=== PATIENT | female | born 1945 | race African-American/Black ===

== ENCOUNTER → 2017-11-29 | Outpatient (CLI) | payer MEDICARE, OTHER | END | disposition home or self-care (01) | LOC: RAD 08:42 | DX: J44.9 Chronic obstructive pulmonary disease, unspecified (principal); I10 Essential (primary) hypertension; E11.9 Type 2 diabetes mellitus without complications | CPT/HCPCS: 71046 ==

== ENCOUNTER → 2017-11-30 | Outpatient (CLI) | payer MEDICARE, OTHER ==
[~2017-11-30] MED LIST: CONTRAST GIVEN. MC
[2017-11-30] MEDS: IOHEXOL 300 MG/ML 100ML VIAL. IV (09:56)
== END | disposition home or self-care (01) ==
LOC: CT 08:47
DX: I31.3 Pericardial effusion (noninflammatory) (principal); M47.895 Other spondylosis, thoracolumbar region; D17.79 Benign lipomatous neoplasm of other sites; I70.0 Atherosclerosis of aorta; I10 Essential (primary) hypertension; E11.9 Type 2 diabetes mellitus without complications; J44.9 Chronic obstructive pulmonary disease, unspecified
CPT/HCPCS: 71260; Q9967

== ENCOUNTER → 2018-01-23 | Outpatient (CLI) | payer MEDICARE, OTHER ==
[2017-12-15 11:00] VITALS: BP 99/45
[~2018-01-23] MED LIST changes: +ACET500T33 PO; +ASPI-482 PO; +ASPI-630 PO; +ASPI81TA50 PO; +AZIT250T PO; +BENZ0.5T32 PO; +CANA100T PO; -CONTRAST GIVEN. MC; +CONTRAST GIVEN. MC PRN; +ETOPOSIDE IV; +FLUT1BLS3 IH; +FLUT9.9S NS; +IOHEXOL 240 MG/ML 50ML VIAL. PO ONE; +IOHEXOL 300 MG/ML 100ML VIAL. IV ONE; +IPRA3AMP29 NEB; +LOSA1TAB19 PO; +METF500T16 PO; +METF500T9 PO; +MULT1TAB52 PO; +REPA2TAB PO; +SAXA5TAB PO; +SIMV20TA3 PO; +SITA50TA PO; +TRAM50TA PO; +Tylenol Arthritis PO; +VENTOLIN HFA18 GM INH; +VITA400C37 PO; +carboplatin IV
--- NOTE | 2018-01-23 12:15 | RAD ---
CT CHEST ABD PELVIS W/CONTRAST Indication: SMALL CELL LUNG CA INJ 60ML OMNI 300 PREV CHEST SENT Exposure: One or more of the following individualized dose reduction techniques were utilized for this examination: 1. Automated exposure control 2. Adjustment of the mA and/or kV according to patient size 3. Use of iterative reconstruction technique. Comparison: CT chest November 30, 2017. No prior CT abdomen and pelvis. Contrast: Intravenous contrast was given. Oral contrast was given. CHEST: The right anterior mediastinal mass has decreased in size since previous exam, now measuring 4.1 cm wide compared with 8.0 on prior. 3.4 cm AP compared with 5.5 on similar prior slice. 3.4 cm height compared with 4.5 on similar prior slice. Mass posterior to this and anterior to the great vessels has decreased in size as well, now measuring 3.5 x 2.0 on transverse dimensions, compared with 5.3 x 4.2 on similar prior slice. Pretracheal lymph node measures 8 mm diameter as compared with 18 mm on prior. Left hilar mass has decreased in size. There is some new consolidative opacity adjacent to the left hilar mass and extending superiorly along the left superior mediastinum with air bronchograms. This could represent some postobstructive consolidation or neoplastic tissue. There is attenuation of the left upper lobe bronchi within this opacity. Development of a small ill-defined nodule in the superior segment of the right lower lobe, series 2, image 25, measures 7 mm. Coronary artery calcifications. The thoracic aorta is calcified and ectatic. No evidence of aneurysm or dissection. Narrowing of the left brachiocephalic vein the mass effect has decreased in conjunction with decreased size of the mediastinal masses. There is still persistent mass effect and narrowing upon the superior vena cava.. Small left thyroid nodule, not included in the area of coverage of the prior study, measures 7 mm. Mild pericardial thickening or fluid. There has been right mastectomy. Right chest wall port is in place. Degenerative spondylosis. Impression: 1. Decrease in size of mediastinal and hilar masses. No definite mass effect and narrowing upon the superior vena cava and left brachiocephalic vein persist although has improved. 2. Development of an area of consolidative opacity in the left upper lobe, could be postobstructive lung consolidation or new neoplastic tissue. 3. Development of a small nodule in the right lower lobe, 7 mm, concerning for metastatic disease. ABDOMEN PELVIS: Liver: Unremarkable Spleen: Multiple lesions within the spleen, some of which demonstrate coarse calcification, similar to prior exam. Pancreas: Unremarkable Adrenals: Fatty mass within left adrenal compatible with a myelolipoma is again identified and appears similar. Kidneys: No obvious mass. Urinary tracts: No hydronephrosis. Gallbladder: No calcified stone Lymph nodes: No significant enlargement Vessels: * Aorta: Calcified, no aneurysm * Major aortic branches: Calcified but grossly patent. * Portal venous: Patent GI tract: Mild diverticulosis. No acute colitis. No evidence of bowel obstruction. Appendix is normal. Reproductive organs:No evidence of mass. Urinary bladder: Not adequately distended for evaluation. Peritoneum: No evidence of pneumoperitoneum. No free fluid. Abdominal wall:Unremarkable Spine: Degenerative spondylosis with stenosis. Bones: No destructive lesion. IMPRESSION: 1. Multiple hypodense and calcified splenic lesions are again identified, nonspecific but could be metastatic disease. 2. Small left adrenal myelolipoma is again identified. 3. Lumbar spondylosis. Electronically signed by: Estiven Hughes MD (01/23/2018 12:12 PM) [facility]
== END | disposition home or self-care (01) ==
LOC: CT 08:57
PROVIDERS: ATTEND Internal Medicine Hematology & Oncology
DX: C34.90 Malignant neoplasm of unspecified part of unspecified bronchus or lung (principal); D17.79 Benign lipomatous neoplasm of other sites; M47.896 Other spondylosis, lumbar region; M48.061 Spinal stenosis, lumbar region without neurogenic claudication; K57.90 Diverticulosis of intestine, part unspecified, without perforation or abscess without bleeding; E04.1 Nontoxic single thyroid nodule; R91.1 Solitary pulmonary nodule; I77.810 Thoracic aortic ectasia; J44.9 Chronic obstructive pulmonary disease, unspecified; I10 Essential (primary) hypertension; E11.9 Type 2 diabetes mellitus without complications; E78.5 Hyperlipidemia, unspecified; Z90.11 Acquired absence of right breast and nipple; Z79.4 Long term (current) use of insulin; Z82.49 Family history of ischemic heart disease and other diseases of the circulatory system; Z80.0 Family history of malignant neoplasm of digestive organs; Z80.3 Family history of malignant neoplasm of breast; Z83.3 Family history of diabetes mellitus
CPT/HCPCS: 71260; 74177; Q9966; Q9967

== ENCOUNTER 2018-02-04 08:59 | Outpatient (CLI) | payer MEDICARE, OTHER ==
[~2018-02-04] VITALS: Ht 160 cm; Wt 74.4 kg
[~2018-02-04 08:59] MED LIST changes: -CONTRAST GIVEN. MC PRN; -IOHEXOL 240 MG/ML 50ML VIAL. PO ONE; -IOHEXOL 300 MG/ML 100ML VIAL. IV ONE
[2018-02-04 09:31] VITALS: BP 132/87
[2018-02-04 09:45] LABS: BASO % 1 % (0-3); EOS % 0 % (0-3); HEMATOCRIT 31.7 % (36.0-47.0); HEMOGLOBIN 10.7 g/dL (12.0-15.5); LYMPH # 2.1 x10^3/uL (1.0-4.8); LYMPH % 38 % (24-48); MEAN CORPUSCULAR HEMOGLOBIN 32 pg (25-35); MEAN CORPUSCULAR HGB CONC 34 g/dL (31-37); MEAN CORPUSCULAR VOLUME 96 fL (79-100); MONO # 0.8 x10^3/uL (0.0-1.1); MONO % 16 % (0-9); NEUT # 2.5 x10^3uL (1.8-7.7); NEUT % 46 % (31-73); PLATELET COUNT 265 x10^3/uL (140-400); RED BLOOD COUNT 3.32 x10^6/uL (3.50-5.40); RED CELL DISTRIBUTION WIDTH 18.1 % (11.5-14.5); WHITE BLOOD COUNT 5.5 x10^3/uL (4.0-11.0)
[2018-02-04 11:24] LABS: PROTHROMBIN TIME PATIENT 13.3 SEC (11.7-14.0)
[2018-02-04] MEDS ORDERED: LIDOCAINE 1%/EPI 1:100,000 20 ML VIAL. ONE (11:50)
[2018-02-04] MEDS ORDERED: fentaNYL PF VIAL 100 MCG/2 ML VIAL ONE (12:21)
[2018-02-04] MEDS ORDERED: LIDOCAINE 1%/EPI 1:100,000 20 ML VIAL. IJ ONE (12:45)
[2018-02-04] MEDS ORDERED: fentaNYL PF VIAL 100 MCG/2 ML VIAL IV ONE (12:45)
[2018-02-04 13:15] VITALS: BP 144/71
[2018-02-04 13:30] VITALS: BP 135/65
--- NOTE | 2018-02-04 14:13 | RAD ---
Fluoroscopic guided implanted port catheter removal History: Catheter no longer needed. Intravenous treatment no longer planned Exposure: Kerma area product: 1 Gycm2 Procedure: Written informed consent was obtained. The indwelling device was fluoroscopically evaluated. A spot film was obtained. The area was draped and prepped in normal sterile fashion. Local anesthesia with 1% Lidocaine was made. Blunt dissection was used to mobilize the catheter and port reservoir from the fibrin sheath. The catheter and port was then withdrawn. Hemostasis was obtained of the venotomy site using nonocclusive manual compression. A spot film was obtained to document good catheter removal. The patient tolerated tolerated the procedure with local anesthesia and IV pain medication. Impression: Successful removal of implanted port catheter
== END 2018-02-04 13:45 | disposition home or self-care (01) ==
LOC: INTRAD 08:59
PROVIDERS: ATTEND Internal Medicine Hematology & Oncology
DX: Z45.2 Encounter for adjustment and management of vascular access device (principal); C34.90 Malignant neoplasm of unspecified part of unspecified bronchus or lung; Z88.5 Allergy status to narcotic agent; Z88.6 Allergy status to analgesic agent; Z88.8 Allergy status to other drugs, medicaments and biological substances; Z79.899 Other long term (current) drug therapy; Z79.01 Long term (current) use of anticoagulants
CPT/HCPCS: 36415; 36590; 77001; 85025; 85610; 85730; J3010; J3490

== ENCOUNTER 2018-03-15 10:02 | Emergency (ER) | payer MEDICARE, OTHER ==
[~2018-03-15] VITALS: Ht 160 cm; Wt 77.1 kg
[2018-03-15 10:59] VITALS: BP 144/81
[2018-03-15] MEDS ORDERED: predniSONE 10 MG TABLET PO ONE (11:30)
--- NOTE | 2018-03-15 12:13 | PHYS DOC ---
Past Medical History Past Medical History: COPD, Diabetes-Type II, High Cholesterol, Hypertension Past Surgical History: Hysterectomy, Other Additional Past Surgical Histo: RIGHT MASTECTOMY Adult General Chief Complaint Chief Complaint: FACE PROBLEM HPI HPI Patient is a 72 year old female who presents with complaints of facial swelling. The patient states that she has been short of breath and saw Dr. Mahan yesterday. She is supposed to use a she steroid inhaler for her COPD. She states that she cannot use the inhaler because she is having difficulties with the mechanism of inhaling it. The patient's daughter is requesting that she get placed on oral steroids. The patient states that Dr. Mahan refused to place her on oral steroids due to complications. They stated that she had been misdiagnosed with cancer and had actually had a port that was removed after several rounds of chemotherapy. She denies fever, chest pain or pedal edema. Review of Systems Review of Systems Constitutional: Denies fever or chills [] Eyes: Denies change in visual acuity, redness, or eye pain [] HENT: See history of present illness Respiratory: See history of present illness Cardiovascular: No additional information not addressed in HPI [] GI: Denies abdominal pain, nausea, vomiting, bloody stools or diarrhea [] : Denies dysuria or hematuria [] Musculoskeletal: Denies back pain or joint pain [] Integument: Denies rash or skin lesions [] Neurologic: Denies headache, focal weakness or sensory changes [] Endocrine: Denies polyuria or polydipsia [] All other systems were reviewed and found to be within normal limits, except as documented in this note. Current Medications Current Medications Current Medications Medications (Trade) Dose Ordered Sig/[facility] Start Time Stop Time Status Last Admin Dose Admin Prednisone (Prednisone) 50 mg 1X ONCE 03/15/18 11:30 03/15/18 11:31 DC 03/15/18 11:51 50 MG Allergies Allergies Allergies Coded Allergies Type Severity Reaction Last Updated Verified codeine Allergy Intermediate tolerates Lortab 05/21/15 Yes lisinopril Allergy Intermediate cough 12/08/17 Yes Physical Exam Physical Exam Constitutional: Well developed, well nourished, no acute distress, non-toxic appearance. [] HENT: Normocephalic, atraumatic, bilateral external ears normal, oropharynx moist, no oral exudates, nose normal, no appreciable edema to her face. [] Eyes: PERRLA, EOMI, conjunctiva normal, no discharge. [] Neck: Normal range of motion, no tenderness, supple, no stridor. [] Cardiovascular:Heart rate regular rhythm, no murmur [] Lungs & Thorax: Bilateral breath sounds decreased throughout Abdomen: Bowel sounds normal, soft, no tenderness, no masses, no pulsatile masses. [] Skin: Warm, dry, no erythema, no rash. [] Neurologic: Alert and oriented X 3, normal motor function, normal sensory function, no focal deficits noted. [] Psychologic: Affect normal, judgement normal, mood normal. [] Current Patient Data Vital Signs Vital Signs Date Time Temp Pulse Resp B/P (MAP) Pulse Ox O2 Delivery O2 Flow Rate FiO2 03/15/18 10:59 98.3 96 20 144/81 (102) 98 Room Air 98.3 EKG EKG [] Radiology/Procedures Radiology/Procedures [] Course & Med Decision Making Course & Med Decision Making Pertinent Labs and Imaging studies reviewed. (See chart for details) []Upon further questioning the patient is unaware of how to use her steroid inhaler. I asked her to show me how she was using it and she was not turning the dial over enough to advance to the next dose. The patient also misunderstood thinking that they were supposed to be a liquid filling her mouth when she inhaled. I explained that she was actually inhaling the powder directly into her lungs and should not be feeling anything in her mouth. It seems that most of her complaints were dressed by education on her medication. She was given 1 dose of oral steroids in the emergency department per her daughter's request. I declined to write a prescription for oral steroids due to the fact that they had freely admitted her primary care provider did not want her taking oral steroids. They are to follow-up with her PCP for further instruction. Dragon Disclaimer Dragon Disclaimer This electronic medical record was generated, in whole or in part, using a voice recognition dictation system. Departure Departure Impression: Primary Impression: Facial swelling Disposition: 01 HOME, SELF-CARE Condition: STABLE Referrals: SARA MAHAN (PCP) Patient Instructions: Prednisone tablets Additional Instructions: Take your at-home medications as prescribed. Follow-up with your primary care provider for further education on using your pulmonary inhalers. If worsening return to the emergency department. FRANSISCO HOWE APRN Mar 15, 2018 12:13
[2018-03-19] MEDS ORDERED: METH4TAB PO (10:28)
== END 2018-03-15 12:35 | disposition home or self-care (01) ==
LOC: ER 10:02
DX: R22.0 Localized swelling, mass and lump, head (principal); J44.9 Chronic obstructive pulmonary disease, unspecified; E78.00 Pure hypercholesterolemia, unspecified; E11.9 Type 2 diabetes mellitus without complications; I10 Essential (primary) hypertension; Z88.5 Allergy status to narcotic agent; Z88.8 Allergy status to other drugs, medicaments and biological substances
CPT/HCPCS: 99282; J7512

== ENCOUNTER 2018-05-06 17:57 | Inpatient (IN) | payer MEDICARE, MEDICAID ==
[~2018-05-06] VITALS: Ht 160 cm; Wt 53.5 kg
[~2018-05-06 17:57] MED LIST changes: +GABA-585 PO; +METH4TAB PO
--- NOTE | 2018-05-06 18:21 | PHYS DOC ---
Past Medical History Past Medical History: Cancer, COPD, Diabetes-Type II, High Cholesterol, Hypertension Past Surgical History: Hysterectomy, Other Additional Past Surgical Histo: RIGHT MASTECTOMY,PAC PLACEMENT & REMOVAL Alcohol Use: None Drug Use: None Adult General Chief Complaint Chief Complaint: UPPER EXTREMITY PAIN [facility] HPI Patient is a 73 year old female who presents with extremity injury. Patient complains of pain in the right forearm. The patient did recently undergo 15 rounds of radiation therapy to the left chest where she was diagnosed with a small cell lung cancer. Her most recent radiation was 5 days ago. She describes that she did have this similar arm pain and neuropathy associated with her radiation throughout the duration of her treatments. Today, she is concerned that the pain hurts worse compared to prior as well as the fact that she is no longer undergoing radiation and did complete that therapy. She does not report a fever but is noted to have a temperature 100.8 on arrival to her room. No chest pain or shortness of breath. No cough. No airway congestion. No headaches or neck stiffness. No change in mental status. Review of Systems Review of Systems Constitutional: Denies fever Eyes: Denies change in visual acuity HENT: Denies nasal congestion Respiratory: Denies cough or shortness of breath Cardiovascular: No additional information not addressed in HPI GI: Denies abdominal pain, nausea, vomiting : Denies dysuria Musculoskeletal: Denies back pain Integument: Denies rash or skin lesions Neurologic: Denies headache, or focal neurologic complaints Endocrine: Denies polyuria All other systems were reviewed and found to be within normal limits, except as documented in this note. Current Medications Current Medications Current Medications Medications (Trade) Dose Ordered Sig/[facility]ie Start Time Stop Time Status Last Admin Dose Admin Acetaminophen (Tylenol) 1,000 mg 1X ONCE 05/06/18 19:00 05/06/18 19:01 DC 05/06/18 19:05 1,000 MG Azithromycin 250 ml @ 250 mls/hr 1X ONCE 05/06/18 20:30 05/06/18 21:29 Ceftriaxone Sodium (Rocephin) 1 gm 1X ONCE 05/06/18 20:30 05/06/18 20:31 DC Sodium Chloride 500 ml @ 500 mls/hr 1X ONCE 05/06/18 20:45 05/06/18 21:44 Allergies Allergies Allergies Coded Allergies Type Severity Reaction Last Updated Verified codeine Allergy Intermediate tolerates Lortab 05/06/18 Yes lisinopril Allergy Intermediate cough 05/06/18 Yes Physical Exam Physical Exam Constitutional: Well developed, well nourished, no acute distress, non-toxic appearance HENT: Normocephalic, atraumatic, bilateral external ears normal, oropharynx moist Eyes: PERRLA, EOMI, conjunctiva normal, no discharge Neck: Normal range of motion, no tenderness Cardiovascular: regular tachy rhythm Lungs & Thorax: Bilateral breath sounds clear to auscultation Abdomen: Bowel sounds normal, soft, no tenderness Skin: Warm, dry, no erythema, no rash Extremities: No tenderness, no edema. Normal examination of the right upper extremity. The patient complains of pain around the mid forearm area but the skin is normal and it is not painful they're to palpation. Distal pulses are 2+ . Neurologic: Alert and oriented X 3, normal motor function, normal sensory function Psychologic: Affect normal Current Patient Data Vital Signs Vital Signs Date Time Temp Pulse Resp B/P (MAP) Pulse Ox O2 Delivery O2 Flow Rate FiO2 05/06/18 18:25 100.8 120 22 156/65 (95) 95 Room Air 100.8 Lab Values Laboratory Tests Test 05/06/18 18:45 05/06/18 19:06 White Blood Count 4.6 x10^3/uL (4.0-11.0) Red Blood Count 3.42 x10^6/uL (3.50-5.40) L Hemoglobin 10.9 g/dL (12.0-15.5) L Hematocrit 31.7 % (36.0-47.0) L Mean Corpuscular Volume 93 fL (79-100) Mean Corpuscular Hemoglobin 32 pg (25-35) Mean Corpuscular Hemoglobin Concent 35 g/dL (31-37) Red Cell Distribution Width 15.6 % (11.5-14.5) H Platelet Count 172 x10^3/uL (140-400) Neutrophils (%) (Auto) 76 % (31-73) H Lymphocytes (%) (Auto) 10 % (24-48) L Monocytes (%) (Auto) 12 % (0-9) H Eosinophils (%) (Auto) 1 % (0-3) Basophils (%) (Auto) 1 % (0-3) Neutrophils # (Auto) 3.5 x10^3uL (1.8-7.7) Lymphocytes # (Auto) 0.4 x10^3/uL (1.0-4.8) L Monocytes # (Auto) 0.5 x10^3/uL (0.0-1.1) Eosinophils # (Auto) 0.1 x10^3/uL (0.0-0.7) Basophils # (Auto) 0.0 x10^3/uL (0.0-0.2) Sodium Level 131 mmol/L (136-145) L Potassium Level 4.5 mmol/L (3.5-5.1) Chloride Level 94 mmol/L (98-107) L Carbon Dioxide Level 26 mmol/L (21-32) Anion Gap 11 (6-14) Blood Urea Nitrogen 17 mg/dL (7-20) Creatinine 1.4 mg/dL (0.6-1.0) H Estimated GFR (Cockcroft-Gault) 44.7 Glucose Level 175 mg/dL (70-99) H Lactic Acid Level 2.0 mmol/L (0.4-2.0) Calcium Level 9.8 mg/dL (8.5-10.1) Troponin I Quantitative < 0.017 ng/mL (0.000-0.055) Procalcitonin 0.55 ng/mL (0.00-0.10) H Influenza Type A Antigen Negative (NEGATIVE) Influenza Type B Antigen Negative (NEGATIVE) Laboratory Tests 05/06/18 18:45 Laboratory Tests 05/06/18 18:45 EKG EKG No STEMI Interpretation Time: 18:55 Radiology/Procedures Radiology/Procedures CXR: PNA Course & Med Decision Making Course & Med Decision Making Pertinent Labs and Imaging studies reviewed. (See chart for details) 18:30: Patient is seen and examined. No acute distress but noted to have mild fever on arrival. Radiation therapy is completed. No chemotherapy. 20:30: All results are reviewed. The patient did have a heart rate in the 120s. She was given 500 mL of normal saline and her heart rate is currently 110. We' ll give additional IV fluids. Lactate is not elevated. The patient is not septic in appearance. No leukocytosis. Creatinine is elevated but at baseline. Calcitonin is mildly elevated. Chest x-ray is suspicious for pneumonia. Plan is to admit the patient. IV Rocephin and azithromycin are started in the ER. Blood cultures have already been sent. Patient is agreeable to the admission plan of care. I spoke to Dr. Johnson who agreed to the admission on behalf of Dr. Waterman, who will be the primary admitting physician. Dragon Disclaimer Dragon Disclaimer This electronic medical record was generated, in whole or in part, using a voice recognition dictation system. Departure Departure Disposition: 09 ADMITTED INPATIENT Condition: GOOD Referrals: SARA MAHAN (PCP) TENA ARREDONDO DO May 06, 2018 18:21
[2018-05-06] MEDS ORDERED: IV NORMAL SALINE 500ML BAG 500 ML IV ONE ×2 (19:00→20:45)
[2018-05-06] MEDS ORDERED: ACETAMINOPHEN 500 MG TABLET PO ONE (19:00)
[2018-05-06 19:05] LABS: BASO % 1 % (0-3); EOS # 0.1 x10^3/uL (0.0-0.7); EOS % 1 % (0-3); HEMATOCRIT 31.7 % (36.0-47.0); HEMOGLOBIN 10.9 g/dL (12.0-15.5); LYMPH # 0.4 x10^3/uL (1.0-4.8); LYMPH % 10 % (24-48); MEAN CORPUSCULAR HEMOGLOBIN 32 pg (25-35); MEAN CORPUSCULAR HGB CONC 35 g/dL (31-37); MEAN CORPUSCULAR VOLUME 93 fL (79-100); MONO # 0.5 x10^3/uL (0.0-1.1); MONO % 12 % (0-9); NEUT # 3.5 x10^3uL (1.8-7.7); NEUT % 76 % (31-73); PLATELET COUNT 172 x10^3/uL (140-400); RED BLOOD COUNT 3.42 x10^6/uL (3.50-5.40); RED CELL DISTRIBUTION WIDTH 15.6 % (11.5-14.5); WHITE BLOOD COUNT 4.6 x10^3/uL (4.0-11.0)
[2018-05-06 19:06] LABS: CALCIUM 9.8 mg/dL (8.5-10.1); CREATININE 1.4 mg/dL (0.6-1.0); GFR 44.7; POTASSIUM 4.5 mmol/L (3.5-5.1)
[2018-05-06 19:34] LABS: INFLUENZA A PATIENT NEGATIVE (NEGATIVE); INFLUENZA B PATIENT NEGATIVE (NEGATIVE)
[2018-05-06] MEDS ORDERED: cefTRIAXone IV Push 1 GM VIAL. IVP ONE (20:30)
[2018-05-06] MEDS ORDERED: AZITHRMYCN 500MG IVPB FOR OMNI 250 ML IV ONE (20:30)
[2018-05-06] MEDS ORDERED: MORPHINE SULFATE 4 MG/ML VIAL. IV PRN (20:45)
[2018-05-06 21:15] VITALS: BP 114/67
--- NOTE | 2018-05-06 21:20 | NUR ---
ADMISSION NOTE: Patient arrived to room 586 via gurney accompanied by ED staff and daughter. Patient transferred self from gurney to chair. Patient has no complaints at this time, eating her boxed lunch from ED. Bed low, locked, call light within reach. Will return once patient is done eating to obtain admission questionnaire.
[2018-05-06 23:00] VITALS: BP 114/58
--- NOTE | 2018-05-07 00:10 | RAD ---
PORTABLE CHEST 1V History: ER patient. fever, generalized weakness. Hx lung cancer, HTN, diabetes, COPD. PRIOR XRAY . Comparison: December 10, 2017 Cardiomediastinal silhouette: Heart size is stable. Lungs: There are mixed infiltrates identified in both lungs, left greater than right, and predominantly parahilar. Previously seen mass along the right superior mediastinum is less well seen on today's study. Pleura: No evidence of pleural effusion. Pneumothorax: None visualized Support Devices: None Surgical clips in the right axilla. Impression: 1. Development of bilateral pulmonary infiltrate and/or edema, left greater than right. 2. The previously seen mass along the right mediastinum is less well seen today. Electronically signed by: Estiven Hughes MD (05/06/2018 9:51 PM) [facility]
[2018-05-07] MEDS: ACETAMINOPHEN 500 MG TABLET PO PRN ×2 (01:34→07:31)
[2018-05-07 03:00] VITALS: BP 96/46
[2018-05-07 04:55] LABS: BASO % 1 % (0-3); EOS # 0.2 x10^3/uL (0.0-0.7); EOS % 6 % (0-3); HEMATOCRIT 28.5 % (36.0-47.0); HEMOGLOBIN 9.8 g/dL (12.0-15.5); LYMPH # 0.3 x10^3/uL (1.0-4.8); LYMPH % 12 % (24-48); MEAN CORPUSCULAR HEMOGLOBIN 32 pg (25-35); MEAN CORPUSCULAR HGB CONC 35 g/dL (31-37); MEAN CORPUSCULAR VOLUME 93 fL (79-100); MONO # 0.5 x10^3/uL (0.0-1.1); MONO % 19 % (0-9); NEUT # 1.7 x10^3uL (1.8-7.7); NEUT % 63 % (31-73); PLATELET COUNT 145 x10^3/uL (140-400); RED BLOOD COUNT 3.07 x10^6/uL (3.50-5.40); RED CELL DISTRIBUTION WIDTH 15.7 % (11.5-14.5); WHITE BLOOD COUNT 2.7 x10^3/uL (4.0-11.0)
[2018-05-07 05:05] LABS: CALCIUM 8.9 mg/dL (8.5-10.1); CREATININE 1.2 mg/dL (0.6-1.0); GFR 53.4
[2018-05-07 06:57] LABS: % ATYL 1 % (0-0); % BANDS 1 % (0-9); % EOS 3 % (0-5); % LYMPHS 18 % (24-48); % MONOS 8 % (0-10); % SEGS 69 % (35-66); ANISOCYTOSIS SLIGHT; PLT ESTIMATE ADEQUATE (ADEQUATE); POLYCHROMASIA OCCASIONAL
--- NOTE | 2018-05-07 06:59 | EKG ---
[facility] [address] [place] [address] Test Date: 2018-05-06 Test Time: 18:54:10 Pat Name: DON ARTEAGA Department: Room: 586 1 Gender: F Brewing Technician: : [id number] Requested By: TENA ARREDONDO Order Number: [id number] Reading MD: Javier Diaz MD Measurements Intervals [place] Rate: 120 P: 3 ND: 144 QRS: 31 QRSD: 66 T: 75 QT: 312 QTc: 446 Interpretive Statements SINUS TACHYCARDIA Electronically Signed On 05-07-2018 12:31:06 NECK BAND OPERATOR by Javier Diaz MD
[2018-05-07 07:00] VITALS: BP 106/71
[2018-05-07] MEDS ORDERED: MULT-98 PO (07:22)
[2018-05-07] MEDS ORDERED: ONDA8TAB9 PO (07:22)
[2018-05-07] MEDS ORDERED: SIMV20TA3 PO (07:22)
[2018-05-07] MEDS ORDERED: TRAZ-86 PO (07:22)
[2018-05-07] MEDS ORDERED: ASPI-630 PO (07:22)
[2018-05-07] MEDS ORDERED: traZODone 100 MG TABLET. PO PRN (08:45)
[2018-05-07] MEDS ORDERED: NON FORMULARY ITEM (Fluticasone/Umeclidin/Vilanter (Trelegy Ellipta 100-62.5-25) 1 EACH) IH SCH (09:00)
[2018-05-07] MEDS ORDERED: ALBUTEROL SULFATE 2.5 MG/3 ML NEBU. NEB PRN (09:00)
[2018-05-07] MEDS ORDERED: ONDANSETRON ODT 4 MG TAB.RAPDIS. PO PRN (09:00)
[2018-05-07] MEDS ORDERED: DEXTROSE 50% 25 GM / 50ML DISP.SYRIN. IV PRN ×2 (09:30→09:45)
[2018-05-07] MEDS ORDERED: MULTIVITAMIN with MINERAL TABLET. PO SCH (09:30)
[2018-05-07] MEDS ORDERED: BUDESONIDE 0.5 MG/2 ML NEBU. NEB SCH (09:30)
[2018-05-07] MEDS ORDERED: ASPIRIN CHEWABLE 81 MG TABLET. PO SCH (09:30)
[2018-05-07] MEDS ORDERED: LINAGLIPTIN 5 MG TABLET PO SCH (09:30)
[2018-05-07] MEDS ORDERED: ASA/APAP/CAFFEINE 250/250/65MG TABLET. PO PRN (09:30)
--- NOTE | 2018-05-07 09:55 | PDOC ---
Provider Note Provider Note Pt seen.H&P dictated.#[id number] KEYANNA SWAN MD May 07, 2018 09:55
--- NOTE | 2018-05-07 10:16 | HP ---
ADMIT DATE: 05/06/2018 REASON FOR ADMISSION TO THE HOSPITAL: Had some cough with shortness of breath. The patient had history of small cell lung cancer, had radiation treatment just done a couple of days ago. She was also having some pain in the upper extremities, was radiating and came to the Emergency Room, had a fever of 100.8. X-ray showed bilateral lung infiltration. The patient was admitted to the hospital with diagnosis of possible pneumonitis. PAST MEDICAL HISTORY: She has history of lung cancer recently diagnosed, had chemo, did not do well, opted just for radiation treatment and she finished a course of radiation recently a week ago. She also has history of breast cancer, right mastectomy, diabetes, hypertension, anxiety, depression. PAST SURGICAL HISTORY: Right mastectomy, hysterectomy, had a PICC placed for chemo which was removed and she got radiation treatment. ALLERGIES: CODEINE AND LISINOPRIL. MEDICATIONS AT HOME: She is on albuterol inhaler, aspirin 81 mg daily, Flonase, Trelegy Ellipta 1 daily, metformin 500 mg daily, multivitamin daily, Zofran for nausea, simvastatin 20 mg daily, Januvia 50 mg daily, trazodone 100 mg daily. PERSONAL HISTORY: History of smoking, she quit smoking. Denies alcohol or street drugs. FAMILY HISTORY: Positive for diabetes, heart disease. REVIEW OF SYSTEMS: CARDIAC: No chest pain. GASTROINTESTINAL: No nausea or vomiting. NEUROLOGIC: She is anxious to go home. EXTREMITIES: Pain in both upper and lower extremities. GENERAL: Denies any fever now. Denies any coughing and yellow sputum. PHYSICAL EXAMINATION: GENERAL: The patient is not in any distress. VITAL SIGNS: At the time of admission shows a temperature of 100.8, pulse 120, respirations 20, blood pressure 154/65, 95% on room air. HEENT: Head is atraumatic. Pupils equal. Oral cavity: No congestion. NECK: Supple. Thyroid not enlarged. JVD not elevated. CHEST: Has a right mastectomy. CARDIOVASCULAR: S1, S2. LUNGS: No wheezing. ABDOMEN: Soft, no masses palpable. EXTERNAL GENITALIA: No Moses. RECTAL: Deferred. EXTREMITIES: No calf tenderness, no edema. Pulses 1+. NEUROLOGIC: Moving all extremities. No focal deficits noted. LABORATORY DATA: Shows a white count of 4.6, hemoglobin 11, platelets 172. Electrolytes show sodium 139, potassium 4.5, chloride 94, bicarbonate 26, anion gap 11, BUN 17, creatinine 1.4, glucose 175. Lactic acid 2.0. Troponin negative and procalcitonin 0.55. Influenza A and B was negative. Had a chest x-ray, shows bilateral pulmonary infiltrates, left greater than the right. EKG done, report is pending. FINAL DIAGNOSES: 1. Possible pneumonitis. 2. Small cell lung cancer. The patient had two chemotherapies, but refused further treatment. She got radiation treatment, finished course a week ago. 3. History of breast carcinoma in the past, had a right mastectomy. 4. Diabetes. 5. Hypertension. 6. Hyponatremia. PLAN: At this time, admit to hospital. Start on Zithromax and Rocephin breathing treatments. Sputum, blood cultures. Pulmonary consult. Repeat a chest x-ray. The patient wants to go home and see how she improves in the next 24-48 hours. KEYANNA SWAN MD DR: DEAN/nts JOB#: [id number] / [id number]
[2018-05-07] MEDS: ALBUTEROL SULFATE 2.5 MG/3 ML NEBU. NEB SCH ×2 (11:38→15:28)
[2018-05-07] MEDS: INSULIN LISPRO 300 UNITS/3 ML INSULN.PEN. SQ SCH ×2 (12:00→17:00)
[2018-05-07] MEDS ORDERED: INSULIN LISPRO 300 UNITS/3 ML INSULN.PEN. SQ SCH (12:00)
[2018-05-07] MEDS ORDERED: GABAPENTIN 100 MG CAPSULE. PO SCH (14:00)
--- NOTE | 2018-05-07 14:49 | RAD ---
Chest, 2 views, 05/07/2018: HISTORY: Cough, pneumonia Comparison is made to yesterday's study. The heart size is normal. There are patchy bilateral pulmonary infiltrates, left greater than right. These infiltrates appear to have worsened slightly. No pleural fluid is seen. Surgical clips are projected over the right axillary region. IMPRESSION: Slight interval worsening of the moderate bilateral pulmonary infiltrates since yesterday's exam. Electronically signed by: Willem Mesa MD (05/07/2018 2:45 PM) [facility]
[2018-05-07] MEDS ORDERED: ASPIRIN 325 MG TABLET PO ONE (15:30)
--- NOTE | 2018-05-07 15:39 | NUR ---
SW following for discharge planning. Discussed with RN, RN advised no SW needs at this time, pt is from home alone but has a daughter who helps out. SW will continue to follow.
[2018-05-07] MEDS ORDERED: ENOXAPARIN 40 MG/0.4 ML SYRINGE. SQ SCH (16:00)
--- NOTE | 2018-05-07 16:17 | NUR ---
Pt refuses finger stick to assess blood glucose, indicating to RELIABILITY SPECIALIST that she is not to "come back later, either, she doesn't want it EVER". No blood sugar taken per pt request.
--- NOTE | 2018-05-07 16:43 | PDOC ---
PULMONARY PROGRESS NOTES Vitals Vital Signs Date Time Temp Pulse Resp B/P (MAP) Pulse Ox O2 Delivery O2 Flow Rate FiO2 05/07/18 15:28 100 Room Air 05/07/18 07:00 97.7 100 18 106/71 (83) 97.7 General: Alert, No acute distress HEENT: Other Lungs: Clear, Other Cardiovascular: S1, S2 Abdomen: Soft, Non-tender Extremities: No Edema Labs Laboratory Tests Test 05/06/18 18:45 05/06/18 19:06 05/07/18 03:35 05/07/18 08:35 White Blood Count 4.6 x10^3/uL (4.0-11.0) 2.7 x10^3/uL (4.0-11.0) Red Blood Count 3.42 x10^6/uL (3.50-5.40) 3.07 x10^6/uL (3.50-5.40) Hemoglobin 10.9 g/dL (12.0-15.5) 9.8 g/dL (12.0-15.5) Hematocrit 31.7 % (36.0-47.0) 28.5 % (36.0-47.0) Mean Corpuscular Volume 93 fL (79-100) 93 fL (79-100) Mean Corpuscular Hemoglobin 32 pg (25-35) 32 pg (25-35) Mean Corpuscular Hemoglobin Concent 35 g/dL (31-37) 35 g/dL (31-37) Red Cell Distribution Width 15.6 % (11.5-14.5) 15.7 % (11.5-14.5) Platelet Count 172 x10^3/uL (140-400) 145 x10^3/uL (140-400) Neutrophils (%) (Auto) 76 % (31-73) 63 % (31-73) Lymphocytes (%) (Auto) 10 % (24-48) 12 % (24-48) Monocytes (%) (Auto) 12 % (0-9) 19 % (0-9) Eosinophils (%) (Auto) 1 % (0-3) 6 % (0-3) Basophils (%) (Auto) 1 % (0-3) 1 % (0-3) Neutrophils # (Auto) 3.5 x10^3uL (1.8-7.7) 1.7 x10^3uL (1.8-7.7) Lymphocytes # (Auto) 0.4 x10^3/uL (1.0-4.8) 0.3 x10^3/uL (1.0-4.8) Monocytes # (Auto) 0.5 x10^3/uL (0.0-1.1) 0.5 x10^3/uL (0.0-1.1) Eosinophils # (Auto) 0.1 x10^3/uL (0.0-0.7) 0.2 x10^3/uL (0.0-0.7) Basophils # (Auto) 0.0 x10^3/uL (0.0-0.2) 0.0 x10^3/uL (0.0-0.2) Sodium Level 131 mmol/L (136-145) 131 mmol/L (136-145) Potassium Level 4.5 mmol/L (3.5-5.1) 4.0 mmol/L (3.5-5.1) Chloride Level 94 mmol/L (98-107) 98 mmol/L (98-107) Carbon Dioxide Level 26 mmol/L (21-32) 23 mmol/L (21-32) Anion Gap 11 (6-14) 10 (6-14) Blood Urea Nitrogen 17 mg/dL (7-20) 14 mg/dL (7-20) Creatinine 1.4 mg/dL (0.6-1.0) 1.2 mg/dL (0.6-1.0) Estimated GFR (Cockcroft-Gault) 44.7 53.4 Glucose Level 175 mg/dL (70-99) 139 mg/dL (70-99) Lactic Acid Level 2.0 mmol/L (0.4-2.0) Calcium Level 9.8 mg/dL (8.5-10.1) 8.9 mg/dL (8.5-10.1) Troponin I Quantitative < 0.017 ng/mL (0.000-0.055) Procalcitonin 0.55 ng/mL (0.00-0.10) Influenza Type A Antigen Negative (NEGATIVE) Influenza Type B Antigen Negative (NEGATIVE) Segmented Neutrophils % 69 % (35-66) Band Neutrophils % 1 % (0-9) Lymphocytes % 18 % (24-48) Atypical Lymphocytes % (Manual) 1 % (0-0) Monocytes % 8 % (0-10) Eosinophils % 3 % (0-5) Platelet Estimate Adequate (ADEQUATE) Large Platelets Few Giant Platelets Occ Polychromasia Occasional Anisocytosis Slight Glucose (Fingerstick) 197 mg/dL (70-99) Test 05/07/18 12:04 Glucose (Fingerstick) 131 mg/dL (70-99) Laboratory Tests Test 05/06/18 18:45 05/06/18 19:06 05/07/18 03:35 05/07/18 08:35 White Blood Count 4.6 x10^3/uL (4.0-11.0) 2.7 x10^3/uL (4.0-11.0) Red Blood Count 3.42 x10^6/uL (3.50-5.40) 3.07 x10^6/uL (3.50-5.40) Hemoglobin 10.9 g/dL (12.0-15.5) 9.8 g/dL (12.0-15.5) Hematocrit 31.7 % (36.0-47.0) 28.5 % (36.0-47.0) Mean Corpuscular Volume 93 fL (79-100) 93 fL (79-100) Mean Corpuscular Hemoglobin 32 pg (25-35) 32 pg (25-35) Mean Corpuscular Hemoglobin Concent 35 g/dL (31-37) 35 g/dL (31-37) Red Cell Distribution Width 15.6 % (11.5-14.5) 15.7 % (11.5-14.5) Platelet Count 172 x10^3/uL (140-400) 145 x10^3/uL (140-400) Neutrophils (%) (Auto) 76 % (31-73) 63 % (31-73) Lymphocytes (%) (Auto) 10 % (24-48) 12 % (24-48) Monocytes (%) (Auto) 12 % (0-9) 19 % (0-9) Eosinophils (%) (Auto) 1 % (0-3) 6 % (0-3) Basophils (%) (Auto) 1 % (0-3) 1 % (0-3) Neutrophils # (Auto) 3.5 x10^3uL (1.8-7.7) 1.7 x10^3uL (1.8-7.7) Lymphocytes # (Auto) 0.4 x10^3/uL (1.0-4.8) 0.3 x10^3/uL (1.0-4.8) Monocytes # (Auto) 0.5 x10^3/uL (0.0-1.1) 0.5 x10^3/uL (0.0-1.1) Eosinophils # (Auto) 0.1 x10^3/uL (0.0-0.7) 0.2 x10^3/uL (0.0-0.7) Basophils # (Auto) 0.0 x10^3/uL (0.0-0.2) 0.0 x10^3/uL (0.0-0.2) Sodium Level 131 mmol/L (136-145) 131 mmol/L (136-145) Potassium Level 4.5 mmol/L (3.5-5.1) 4.0 mmol/L (3.5-5.1) Chloride Level 94 mmol/L (98-107) 98 mmol/L (98-107) Carbon Dioxide Level 26 mmol/L (21-32) 23 mmol/L (21-32) Anion Gap 11 (6-14) 10 (6-14) Blood Urea Nitrogen 17 mg/dL (7-20) 14 mg/dL (7-20) Creatinine 1.4 mg/dL (0.6-1.0) 1.2 mg/dL (0.6-1.0) Estimated GFR (Cockcroft-Gault) 44.7 53.4 Glucose Level 175 mg/dL (70-99) 139 mg/dL (70-99) Lactic Acid Level 2.0 mmol/L (0.4-2.0) Calcium Level 9.8 mg/dL (8.5-10.1) 8.9 mg/dL (8.5-10.1) Troponin I Quantitative < 0.017 ng/mL (0.000-0.055) Procalcitonin 0.55 ng/mL (0.00-0.10) Influenza Type A Antigen Negative (NEGATIVE) Influenza Type B Antigen Negative (NEGATIVE) Segmented Neutrophils % 69 % (35-66) Band Neutrophils % 1 % (0-9) Lymphocytes % 18 % (24-48) Atypical Lymphocytes % (Manual) 1 % (0-0) Monocytes % 8 % (0-10) Eosinophils % 3 % (0-5) Platelet Estimate Adequate (ADEQUATE) Large Platelets Few Giant Platelets Occ Polychromasia Occasional Anisocytosis Slight Glucose (Fingerstick) 197 mg/dL (70-99) Test 05/07/18 12:04 Glucose (Fingerstick) 131 mg/dL (70-99) Medications Active Scripts Medications Dose Route/Sig Max Daily Dose Days Date Category Simvastatin 20 Mg Tablet 1 Tab PO DAILYWSUP 05/07/18 Reported Women's Daily Formula (Multivit With Calcium,Iron,Min) 1 Each Tablet 1 Each PO DAILY 05/07/18 Reported Aspirin 81 Mg Tab.chew 1 Tab PO DAILY 05/07/18 Reported Zofran (Ondansetron Hcl) 8 Mg Tablet 1 Tab PO PRN Q6HRS PRN 05/07/18 Reported Trazodone Hcl 100 Mg Tablet 1-1.5 Tab PO PRN QHS PRN 05/07/18 Reported Januvia (Sitagliptin Phosphate) 50 Mg Tablet 1 Tab PO DAILY 12/07/17 Reported Ventolin Hfa Inhaler (Albuterol Sulfate) 18 Gm Hfa.aer.ad 2 Puff INH PRN Q4-6HRS PRN 12/07/17 Reported Trelegy Ellipta 100-62.5-25 (Fluticasone/Umeclidin/Vilanter) 1 Each Blst.w.dev 1 Each IH DAILY 12/07/17 Reported Metformin Hcl Er (Metformin Hcl) 500 Mg Tab.er.24h 500 Mg PO HS 12/07/17 Reported Impression . dictated thanks d/w CINDY Davison MD May 07, 2018 16:43
[2018-05-07] MEDS ORDERED: AZIT250T PO (16:52)
--- NOTE | 2018-05-07 16:53 | PDOC ---
PROGRESS NOTES Objective Objective Vital Signs Date Time Temp Pulse Resp B/P (MAP) Pulse Ox O2 Delivery O2 Flow Rate FiO2 05/07/18 15:28 100 Room Air 05/07/18 07:00 97.7 100 18 106/71 (83) 97.7 Intake and Output 05/07/18 07:01 Intake Total 1340 ml Balance 1340 ml Intake Oral 840 ml IV Total 500 ml # Voids 1 Physical Exam MUSCULOSKELETAL: No swelling Assessment Assessment FINAL DIAGNOSES: 1. Possible pneumonitis. 2. Small cell lung cancer. The patient had two chemotherapies, but refused further treatment. She got radiation treatment, finished course a week ago. 3. History of breast carcinoma in the past, had a right mastectomy. 4. Diabetes. 5. Hypertension. 6. Hyponatremia. PLAN: pt adamant on going home ,feels better. she does not to stay in the hospital. reviewed cxr, possible lung infiltrates Probably from radiation treatment. spoke with Pulmonary today d/c home on pts request on Z pack. At this time, admit to hospital. Start on Zithromax and Rocephin breathing treatments. Sputum, blood cultures. Pulmonary consult. Repeat a chest x-ray. The patient wants to go home and see how she improves in the next 24-48 hours. Comment Review of Relevant I have reviewed the following items pebbles (where applicable) has been applied. Labs Laboratory Tests Test 05/06/18 18:45 05/06/18 19:06 05/07/18 03:35 05/07/18 08:35 White Blood Count 4.6 x10^3/uL (4.0-11.0) 2.7 x10^3/uL (4.0-11.0) Red Blood Count 3.42 x10^6/uL (3.50-5.40) 3.07 x10^6/uL (3.50-5.40) Hemoglobin 10.9 g/dL (12.0-15.5) 9.8 g/dL (12.0-15.5) Hematocrit 31.7 % (36.0-47.0) 28.5 % (36.0-47.0) Mean Corpuscular Volume 93 fL (79-100) 93 fL (79-100) Mean Corpuscular Hemoglobin 32 pg (25-35) 32 pg (25-35) Mean Corpuscular Hemoglobin Concent 35 g/dL (31-37) 35 g/dL (31-37) Red Cell Distribution Width 15.6 % (11.5-14.5) 15.7 % (11.5-14.5) Platelet Count 172 x10^3/uL (140-400) 145 x10^3/uL (140-400) Neutrophils (%) (Auto) 76 % (31-73) 63 % (31-73) Lymphocytes (%) (Auto) 10 % (24-48) 12 % (24-48) Monocytes (%) (Auto) 12 % (0-9) 19 % (0-9) Eosinophils (%) (Auto) 1 % (0-3) 6 % (0-3) Basophils (%) (Auto) 1 % (0-3) 1 % (0-3) Neutrophils # (Auto) 3.5 x10^3uL (1.8-7.7) 1.7 x10^3uL (1.8-7.7) Lymphocytes # (Auto) 0.4 x10^3/uL (1.0-4.8) 0.3 x10^3/uL (1.0-4.8) Monocytes # (Auto) 0.5 x10^3/uL (0.0-1.1) 0.5 x10^3/uL (0.0-1.1) Eosinophils # (Auto) 0.1 x10^3/uL (0.0-0.7) 0.2 x10^3/uL (0.0-0.7) Basophils # (Auto) 0.0 x10^3/uL (0.0-0.2) 0.0 x10^3/uL (0.0-0.2) Sodium Level 131 mmol/L (136-145) 131 mmol/L (136-145) Potassium Level 4.5 mmol/L (3.5-5.1) 4.0 mmol/L (3.5-5.1) Chloride Level 94 mmol/L (98-107) 98 mmol/L (98-107) Carbon Dioxide Level 26 mmol/L (21-32) 23 mmol/L (21-32) Anion Gap 11 (6-14) 10 (6-14) Blood Urea Nitrogen 17 mg/dL (7-20) 14 mg/dL (7-20) Creatinine 1.4 mg/dL (0.6-1.0) 1.2 mg/dL (0.6-1.0) Estimated GFR (Cockcroft-Gault) 44.7 53.4 Glucose Level 175 mg/dL (70-99) 139 mg/dL (70-99) Lactic Acid Level 2.0 mmol/L (0.4-2.0) Calcium Level 9.8 mg/dL (8.5-10.1) 8.9 mg/dL (8.5-10.1) Troponin I Quantitative < 0.017 ng/mL (0.000-0.055) Procalcitonin 0.55 ng/mL (0.00-0.10) Influenza Type A Antigen Negative (NEGATIVE) Influenza Type B Antigen Negative (NEGATIVE) Segmented Neutrophils % 69 % (35-66) Band Neutrophils % 1 % (0-9) Lymphocytes % 18 % (24-48) Atypical Lymphocytes % (Manual) 1 % (0-0) Monocytes % 8 % (0-10) Eosinophils % 3 % (0-5) Platelet Estimate Adequate (ADEQUATE) Large Platelets Few Giant Platelets Occ Polychromasia Occasional Anisocytosis Slight Glucose (Fingerstick) 197 mg/dL (70-99) Test 05/07/18 12:04 Glucose (Fingerstick) 131 mg/dL (70-99) Medications Current Medications Acetaminophen (Tylenol) 1,000 mg 1X ONCE PO Last administered on 05/06/18at 19: 05; Start 05/06/18 at 19:00; Stop 05/06/18 at 19:01; Status DC Acetaminophen (Tylenol) 1,000 mg PRN Q6HRS PRN PO fever or pain Last administered on 05/07/18at 07:31; Start 05/06/18 at 20:45 Acetaminophen/ Aspirin/Caffeine (Excedrin Migraine) 1 tab PRN Q6HRS PRN PO MIGRAINE HEADACHE Last administered on 05/07/18at 09:47; Start 05/07/18 at 09:30 Albuterol Sulfate (Ventolin Neb Soln) 2.5 mg PRN Q6HRS PRN NEB SHORTNESS OF BREATH; Start 05/07/18 at 09:00 Albuterol Sulfate (Ventolin Neb Soln) 2.5 mg RTQID NEB Last administered on at 15:28; Start 05/07/18 at 09:30 Aspirin (Tesfaye Aspirin) 325 mg 1X ONCE PO Last administered on 05/07/18at 15:25 ; Start 05/07/18 at 15:30; Stop 05/07/18 at 15:31; Status DC Aspirin (Children'S Aspirin) 81 mg DAILY PO Last administered on 05/07/18at 08: 54; Start 05/07/18 at 09:30 Azithromycin 250 ml @ 250 mls/hr 1X ONCE IV Last administered on 05/06/18at 20 :45; Start 05/06/18 at 20:30; Stop 05/06/18 at 21:29; Status DC Azithromycin 500 mg/Sodium Chloride 250 ml @ 250 mls/hr Q24H IV ; Start at 21:00 Budesonide (Pulmicort) 0.5 mg RTBID NEB Last administered on 05/07/18at 11:38; Start 05/07/18 at 09:30 Ceftriaxone Sodium (Rocephin) 1 gm 1X ONCE IVP Last administered on 05/06/18at 20:39; Start 05/06/18 at 20:30; Stop 05/06/18 at 20:31; Status DC Ceftriaxone Sodium (Rocephin) 1 gm Q24H IVP ; Start 05/07/18 at 20:00 Dextrose (Dextrose 50%-Water Syringe) 12.5 gm PRN Q15MIN PRN IV SEE COMMENTS; Start 05/07/18 at 09:30 Dextrose (Dextrose 50%-Water Syringe) 12.5 gm PRN Q15MIN PRN IV SEE COMMENTS; Start 05/07/18 at 09:45; Status UNV Enoxaparin Sodium (Lovenox 40mg Syringe) 40 mg Q24H SQ ; Start 05/07/18 at 16:00 Gabapentin (Neurontin) 100 mg TID PO ; Start 05/07/18 at 14:00 Insulin Human Lispro (HumaLOG) 0-7 UNITS TIDWMEALS SQ ; Start 05/07/18 at 12:00 Insulin Human Lispro (HumaLOG) 0-7 UNITS TIDWMEALS SQ ; Start 05/07/18 at 12:00 ; Status UNV Lactobacillus Rhamnosus (Culturelle) 1 cap BID PO ; Start 05/07/18 at 21:00 Linagliptin (Tradjenta) 5 mg DAILY PO Last administered on 05/07/18at 09:46; Start 05/07/18 at 09:30 Metformin HCl (Glucophage) 500 mg QHS PO ; Start 05/07/18 at 21:00 Morphine Sulfate (Morphine Sulfate) 2 mg PRN Q2HRS PRN IV pain; Start 05/06/18 at 20:45 Multivitamins (Thera M Plus) 1 tab DAILY PO Last administered on 05/07/18at 09: 46; Start 05/07/18 at 09:30 Non-Formulary Medication (Fluticasone/ Umeclidin/ Vilanter (Trelegy Ellipta 100- 62.5-25)) 1 each DAILY IH ; Start 05/07/18 at 09:00; Status UNV Ondansetron HCl (Zofran Odt) 4 mg PRN Q6HRS PRN PO NAUSEA/VOMITING; Start 05/07 at 09:00 Simvastatin (Zocor) 20 mg HS PO ; Start 05/07/18 at 21:00 Sodium Chloride 500 ml @ 500 mls/hr 1X ONCE IV Last administered on at 19:06; Start 05/06/18 at 19:00; Stop 05/06/18 at 19:59; Status DC Sodium Chloride 500 ml @ 500 mls/hr 1X ONCE IV Last administered on at 20:47; Start 05/06/18 at 20:45; Stop 05/07/18 at 00:09; Status DC Trazodone HCl (Desyrel) 100 mg PRN QHS PRN PO INSOMNIA; Start 05/07/18 at 08:45 Vitals/I & O Vital Sign - Last 24 Hours 05/06/18 05/06/18 05/06/18 05/06/18 18:25 18:56 19:26 19:56 Temp 100.8 100.8 Pulse 120 119 101 99 Resp 22 18 18 18 B/P (MAP) 156/65 (95) 135/65 (88) 132/58 (82) 108/51 (70) Pulse Ox 95 99 94 94 O2 Delivery Room Air 05/06/18 05/06/18 05/06/18 05/06/18 20:26 21:15 21:15 23:00 Temp 98.6 97.7 98.6 97.7 Pulse 109 100 104 Resp 18 17 18 B/P (MAP) 108/68 (81) 114/67 (83) 114/58 (76) Pulse Ox 99 97 97 O2 Delivery Room Air Room Air Room Air 05/07/18 05/07/18 05/07/18 05/07/18 03:00 07:00 08:00 11:40 Temp 97.9 97.7 97.9 97.7 Pulse 90 100 Resp 18 18 B/P (MAP) 96/46 (63) 106/71 (83) Pulse Ox 94 100 100 O2 Delivery Room Air Room Air Room Air Room Air 05/07/18 05/07/18 15:00 15:28 Pulse Ox 100 O2 Delivery High Flow Nasal Cannula Room Air Intake and Output 05/06/18 05/06/18 05/07/18 15:01 23:01 07:01 Intake Total 500 ml 840 ml Balance 500 ml 840 ml KEYANNA SWAN MD May 07, 2018 16:53
--- NOTE | 2018-05-07 17:30 | NUR ---
Discharge Note: WHITNEY ARTEAGA Discharge instructions and discharge home medications reviewed with Family Member and a copy given. All questions have been answered and understanding verbalized. The following instructions and handouts were given: Pneumonia Discontinued lines and drains: L wrist peripheral IV discontinued, no bleeding or bruising, catheter tip intact. Patient discharged to home for self-care, follow up w/Dr. Zhong in 1-2 weeks. Pt escorted by her daughter/DPOA, taken out by this write by [employer].
[2018-05-07] MEDS ORDERED: cefTRIAXone IV Push 1 GM VIAL. IVP SCH (20:00)
[2018-05-07] MEDS ORDERED: metFORMIN 500 MG TABLET PO SCH (21:00)
[2018-05-07] MEDS ORDERED: LACTOBACILLUS RHAMNOSUS GG 1 CAPSULE. PO SCH (21:00)
[2018-05-07] MEDS ORDERED: SIMVASTATIN 20 MG TABLET PO SCH (21:00)
[2018-05-07] MEDS ORDERED: AZITHROMYCIN 500 MG in IV NORMAL SALINE 250ML 250 ML IV SCH (21:00)
--- NOTE | 2018-05-07 21:12 | CONS ---
DATE OF CONSULTATION: 05/07/2018 ATTENDING PHYSICIAN: Dr. Waterman. REASON FOR CONSULTATION: The patient seen in pulmonary consultation at the request of Dr. Waterman for abnormal x-ray. HISTORY OF PRESENT ILLNESS: The patient is a 73-year-old that presented with increasing shortness of breath, mostly upper extremity pain. She was seen in the Emergency Room, had a fever, was admitted. Chest x-ray showed some worsening infiltrates. I was asked to see her in consultation. The patient is currently receiving IV antibiotics. She also has a history of lung cancer recently diagnosed, had chemo, did not do well, then she opted for radiation, finished a course of radiation approximately a week ago. She denies hemoptysis. She is adamant about going home. I was asked to see her prior to discharge. PAST MEDICAL HISTORY: Remarkable for history of lung cancer status post recent radiation. She received one cycle of chemo, did not tolerate it very well. She has a history of breast cancer, status post right mastectomy; diabetes; hypertension; anxiety; depression. PAST SURGICAL HISTORY: As above, mastectomy, hysterectomy, PICC line placement. ALLERGIES: LISTED TO CODEINE AND LISINOPRIL. HOME MEDICATION LIST: Reviewed. SOCIAL HISTORY: She quit tobacco. Denies any alcohol intake. FAMILY HISTORY: Remarkable for diabetes. REVIEW OF SYSTEMS: CONSTITUTIONAL: No fever or chills. EYES: No change in visual acuity. HENT: No nasal congestion or sore throat. PULMONARY: As indicated above. CARDIOVASCULAR: No chest pain. No pressure. GASTROINTESTINAL: No nausea, vomiting, diarrhea. GENITOURINARY: No dysuria or frequency. MUSCULOSKELETAL: No localized muscle aches or joint pains. SKIN: No new skin rashes. NEUROLOGIC: No headaches, diplopia or blurred vision. CURRENT MEDICATION LIST: Reviewed. PHYSICAL EXAMINATION: VITAL SIGNS: Since admission she had a T-max of 100.8. HEENT: Eyes, the sclerae were nonicteric. NECK: Jugular venous distention was not elevated. No lymphadenopathy. CHEST: Full expansion. LUNGS: Adequate airway flow, no wheezes. CARDIOVASCULAR: Regular rate and rhythm with S1, S2, no S3. ABDOMEN: Soft, nontender, nondistended. EXTREMITIES: No clubbing, cyanosis or edema. NEUROLOGIC: The patient was awake, alert, following commands. A detailed neuro exam was not performed. LABORATORY DATA: Reviewed. Chest x-ray revealed bilateral infiltrate, left greater than right. Influenza screen was negative. White count was noted. Procalcitonin was elevated. IMPRESSION: 1. Abnormal x-ray compatible with possible pneumonia with concomitant acute lung injury secondary to radiation. 2. Acute lung injury secondary to radiation. 3. Lung cancer, status post one cycle of chemotherapy, recently finished a course of radiation. 4. Status post right mastectomy. PLAN: 1. As indicated above, the patient is adamant about going home. Case discussed with elfego Galeano to discharge home. Follow up with him in the office. 2. Discharge home on Z-RONEL. 3. The patient is to follow up with Dr. Waterman. If her symptoms worsen, I recommend a course of prednisone and monitor blood sugars. I do appreciate the privilege in sharing in the patient's care. CINDY EDUARDO MD DR: ILAN/bekah JOB#: [id number] / [id number]
--- NOTE | 2018-05-12 10:36 | PDOC ---
Provider Note Provider Note Discharge summary dictated.#[id number]. KEYANNA SWAN MD May 12, 2018 10:36
--- NOTE | 2018-05-12 10:50 | DS ---
DATE OF DISCHARGE: 05/07/2018 REASON FOR ADMISSION TO THE HOSPITAL: Shortness of breath, right upper extremity pain, possible radiation-induced pneumonitis. CONSULTATIONS: Dr. Blankenship. PROCEDURES DONE: Chest x-ray. HOSPITAL COURSE: The patient is a 73-year-old female with history of lung cancer, small cell CA. She received 2 courses of chemo 3 months ago and from side effects she did not want further chemo. She was admitted a month ago for worsening mediastinal mass seen by Radiation Oncology. She opted to have radiation treatment. The patient finished 4 weeks of radiation treatment a week ago. She was having pain on the right side of the chest. The patient was admitted to the hospital. Cardiac enzymes negative. Chest x-ray, infiltrate in the lung. The patient was given antibiotics, Zithromax and Levaquin. The patient did not want to stay in the hospital, she was feeling better and the patient was discharged on the patient's request. FINAL DIAGNOSES: 1. Possible radiation-induced pneumonitis. 2. Radiation treatment for small cell lung carcinoma. The patient did not want chemotherapy. 3. History of breast cancer, right mastectomy. 4. Diabetes, hypertension, hyperlipidemia. DISPOSITION: Home and follow with primary care doctor, Dr. Zhong. ADDENDUM: The patient was discharged on the patient's request. KEYANNA SWAN MD DR: DEAN/bekah JOB#: [id number] / [id number]
[2018-05-16] MEDS ORDERED: PRED-220 PO (10:13)
[2018-05-16] MEDS ORDERED: CELE100C PO (10:13)
[2018-05-16] MEDS ORDERED: LEVO500T59 PO (10:13)
[2018-05-16] MEDS ORDERED: METO25TA4 PO (10:13)
== END 2018-05-07 17:30 | disposition home or self-care (01) | DRG 871 ==
LOC: ER 17:57 → 5 SOUTH 20:20 → OBSVTOIN 05-07 09:49
PROVIDERS: ADMIT Internal Medicine; ATTEND Internal Medicine
DX: A41.9 Sepsis, unspecified organism (principal); J18.9 Pneumonia, unspecified organism; C34.90 Malignant neoplasm of unspecified part of unspecified bronchus or lung; E87.1 Hypo-osmolality and hyponatremia; E78.00 Pure hypercholesterolemia, unspecified; E11.42 Type 2 diabetes mellitus with diabetic polyneuropathy; Z79.4 Long term (current) use of insulin; I10 Essential (primary) hypertension; F41.8 Other specified anxiety disorders; Z83.3 Family history of diabetes mellitus; Z85.118 Personal history of other malignant neoplasm of bronchus and lung; Z85.3 Personal history of malignant neoplasm of breast; Z87.891 Personal history of nicotine dependence; Z90.11 Acquired absence of right breast and nipple; Z90.710 Acquired absence of both cervix and uterus; Z88.8 Allergy status to other drugs, medicaments and biological substances; E78.5 Hyperlipidemia, unspecified
CPT/HCPCS: 36415; 71045; 71046; 80048; 82962; 83605; 84145; 84484; 85007; 85025; 87040; 87070; 87205; 87804; 93005; 94640; 94760; 96365; 96375; G0378; G0379; J0456; J0696; J1815; J7040; J7613; J7626; 99285-25